=== PATIENT | male | born 2000 | race Caucasian/White ===

== ENCOUNTER 2021-10-09 17:10 | Inpatient (IN) | payer MEDICAID, OTHER ==
[2021-10-09] MEDS ORDERED: LORazepam 2 MG/ML INJ IM PRN (17:47)
[2021-10-09] MEDS ORDERED: HALOPERIDOL LACTATE 5 MG/ML 1 ML VIAL IM PRN (17:50)
[2021-10-09] MEDS ORDERED: MAGNESIUM HYDROXIDE 2,400 MG/10 ML CUP PO PRN (17:53)
[2021-10-09] MEDS ORDERED: MAG HYDROX/AL HYDROX/SIMETH 30 ML CUP PO PRN (17:53)
[2021-10-09] MEDS ORDERED: ACETAMINOPHEN TAB 325 MG TAB PO PRN (17:53)
[2021-10-09] MEDS: LORazepam 1 MG TAB PO PRN (18:05)
[2021-10-09] MEDS: haloperidoL 5 MG TAB PO PRN (18:05)
[2021-10-09] MEDS: NICOTINE 21MG/24HR PATCH TRANSDERM SCH (18:07)
[2021-10-09 18:19] VITALS: RESP 16
--- NOTE | 2021-10-10 02:17 | P.PN ---
Progress Note - Text Progress Note Date: 10/09/21 direct admit, bizarre behavior , inappropriate for evaluation at this time
[2021-10-10] MEDS: NICOTINE 21MG/24HR PATCH TRANSDERM SCH (09:06)
[2021-10-10] MEDS: LORazepam 1 MG TAB PO PRN (10:57)
[2021-10-10 11:37] LABS: Basophils # (A) 0.1 k/uL (0-0.2); Basophils % (A) 1 %; Eosinophils # (A) 0.2 k/uL (0-0.7); Eosinophils % (A) 3 %; HCT 48.2 % (39.0-53.0); HGB 16.1 gm/dL (13.0-17.5); Lymphocytes # (A) 2.4 k/uL (1.0-4.8); Lymphocytes % (A) 33 %; MCH 30.6 pg (25.0-35.0); MCHC 33.3 g/dL (31.0-37.0); MCV 91.9 fL (80.0-100.0); Mean Platelet Volume 6.8; Monocytes # (A) 0.5 k/uL (0-1.0); Monocytes % (A) 6 %; Neutrophils % (A) 55 %; Platelet Count 244 k/uL (150-450); RBC 5.25 m/uL (4.30-5.90); RDW 13.7 % (11.5-15.5); WBC 7.3 k/uL (3.8-10.6)
[2021-10-10 11:57] LABS: ALT 14 U/L (4-49); AST 27 U/L (17-59); African American GFR (CKD) >90 (>60 ml/min/1.73 sqM); Albumin 4.6 g/dL (3.5-5.0); Alkaline Phosphatase 49 U/L (38-126); Anion Gap 8 mmol/L; Blood Urea Nitrogen 16 mg/dL (9-20); Calcium 9.6 mg/dL (8.4-10.2); Carbon Dioxide 26 mmol/L (22-30); Chloride 104 mmol/L (98-107); Glucose 86 mg/dL (74-99); Non-African American GFR(CKD) >90 (>60 ml/min/1.73 sqM); Potassium 4.3 mmol/L (3.5-5.1); Sodium 138 mmol/L (137-145); Total Bilirubin 0.8 mg/dL (0.2-1.3); Total Protein 7.1 g/dL (6.3-8.2)
--- NOTE | 2021-10-10 16:19 | P.HPMEDMHU ---
History of Present Illness H&P Date: 10/10/21 History of Presenting Illness: Patient is a 21-year-old male with a past medical history of schizophrenia, PTSD, nicotine dependence, and methamphetamine use. Patient is currently admitted to inpatient psychiatric unit under psychiatry team secondary to psychosis. We have been consulted for medical evaluation and management throughout patient's hospitalization. Patient was seen and fully evaluated on psychiatric unit. He reports he is currently hospitalized because he had a panic attack causing him to shave his head because he was hearing voices and the voices told him to do so. Patient reports he is still hearing voices denies having any visual or tactile hallucinations. Patient also denies having any suicidal or homicidal ideations. He reports that he smokes one pack of cigarettes daily and uses methamphetamines. He denies having any other medical history and denies having any previous surgical procedures. Patient currently denies having any complaints including headache, lightheadedness, dizziness, chest pain, palpitations, shortness of breath, abdominal pain, nausea or vomiting. Labs completed with CBC, CMP, and TSH all unremarkable. Vital signs stable with heart rate 87, respiratory rate 16, BP 108/57, temp 97.7F and SpO2 of 98% on room air.. Review of systems: Pertinent positives and negatives as discussed in HPI, a complete review of sy stems was performed and all other systems are negative. Physical exam: Vital signs reviewed and stable. General: Nontoxic, no distress and appears stated age. Derm: Skin warm and dry, normal coloration for ethnicity. Head: Atraumatic, normocephalic and symmetric. Eyes: EOMs intact, no lid lag, and anicteric sclera Mouth: no lip lesions, mucus membranes moist Cardiovascular: regular rate and rhythm with normal S1S2, no murmur, positive posterior tibial pulses bilaterally, and cap refill < 2 seconds. Lungs: Respirations even, regular, and unlabored on room air. Lungs CTA bilaterally, no rhonchi, no rales, no wheezing, and no accessory muscle usage. Abdominal: soft, nontender to palpation, no guarding, no appreciable organomegaly Ext: ROM intact. No gross muscle atrophy, no edema, no contractures Neuro: Speech clear, face symmetrical and CN II-XII grossly intact with no noted focal neuro deficits Psych: Alert and oriented to person, place, time, and situation. Cooperative and pleasant, patient seemed to avoid eye contact throughout conversation/assessment Assessment and Plan of Care: Acute psychosis with auditory hallucinations Schizophrenia PTSD -Management per primary admitting psychiatric team including medications and therapeutic treatments. -Provide safe and supportive care. Methamphetamine use/abuse -Encourage and educate patient on the importance of drug cessation and the risks associated with continued use. Nicotine dependence -Encourage smoking cessation. -Nicotine patch Thank you for allowing us to participate in the care of this pleasant patient. Do not hesitate to contact us with questions. Someone can be reached from the [facility] hospitalist group all hours of the day at [phone] or via [employer]. Medications and Allergies Allergies Allergy/AdvReac Type Severity Reaction Status Date / Time No Known Allergies Allergy Verified 10/09/21 17:47 Physical Exam Vitals: Vital Signs Temp Pulse Resp BP Pulse Ox 10/09/21 18:13 97.7 F 87 16 108/57 98 Cranial Nerve Examination - Cranial Nerves Cranial Nerve II- Optic: Intact Cranial Nerve III- Oculomotor: Intact Cranial Nerve IV- Trochlear: Intact Cranial Nerve V- Trigeminal: Intact Cranial Nerve - Abducens: Intact Cranial Nerve VII- Facial: Intact Cranial Nerve VIII- Auditory: Intact Cranial Nerve IX- Glossopharyngeal: Intact Cranial Nerve X- Vagus: Intact Cranial Nerve XI- Accessory: Intact Cranial Nerve XII- Hypoglossal: Intact Results CBC & Chem 7: 10/10/21 10:51 10/10/21 10:51
--- NOTE | 2021-10-10 16:43 | P.HP ---
Psychiatric H&P - . H&P Date: 10/10/21 History & Physical: Allergies Allergy/AdvReac Type Severity Reaction Status Date / Time No Known Allergies Allergy Verified 10/09/21 17:47 Vital Signs Temp 97.7 F 10/09/21 18:13 Pulse 87 10/09/21 18:13 Resp 16 10/09/21 18:13 BP 108/57 10/09/21 18:13 Pulse Ox 98 10/09/21 18:13 Intake & Output 10/09/21 10/10/21 10/10/21 18:59 06:59 18:59 Weight 55.8 kg Laboratory Last Values WBC 7.3 k/uL (3.8-10.6) 10/10/21 10:51 RBC 5.25 m/uL (4.30-5.90) 10/10/21 10:51 Hgb 16.1 gm/dL (13.0-17.5) 10/10/21 10:51 Hct 48.2 % (39.0-53.0) 10/10/21 10:51 MCV 91.9 fL (80.0-100.0) 10/10/21 10:51 MCH 30.6 pg (25.0-35.0) 10/10/21 10:51 MCHC 33.3 g/dL (31.0-37.0) 10/10/21 10:51 RDW 13.7 % (11.5-15.5) 10/10/21 10:51 Plt Count 244 k/uL (150-450) 10/10/21 10:51 MPV 6.8 10/10/21 10:51 Neutrophils % 55 % 10/10/21 10:51 Lymphocytes % 33 % 10/10/21 10:51 Monocytes % 6 % 10/10/21 10:51 Eosinophils % 3 % 10/10/21 10:51 Basophils % 1 % 10/10/21 10:51 Neutrophils # 4.0 k/uL (1.3-7.7) 10/10/21 10:51 Lymphocytes # 2.4 k/uL (1.0-4.8) 10/10/21 10:51 Monocytes # 0.5 k/uL (0-1.0) 10/10/21 10:51 Eosinophils # 0.2 k/uL (0-0.7) 10/10/21 10:51 Basophils # 0.1 k/uL (0-0.2) 10/10/21 10:51 Sodium 138 mmol/L (137-145) 10/10/21 10:51 Potassium 4.3 mmol/L (3.5-5.1) 10/10/21 10:51 Chloride 104 mmol/L (98-107) 10/10/21 10:51 Carbon Dioxide 26 mmol/L (22-30) 10/10/21 10:51 Anion Gap 8 mmol/L 10/10/21 10:51 BUN 16 mg/dL (9-20) 10/10/21 10:51 Creatinine 1.00 mg/dL (0.66-1.25) 10/10/21 10:51 Est GFR (CKD-EPI)AfAm >90 (>60 ml/min/1.73 sqM) 10/10/21 10:51 Est GFR (CKD-EPI)NonAf >90 (>60 ml/min/1.73 sqM) 10/10/21 10:51 Glucose 86 mg/dL (74-99) 10/10/21 10:[address] Glu mg/dL 105 10/10/21 10:51 Hemoglobin A1c 5.3 % (0.0-6.0) 10/10/21 10:51 Calcium 9.6 mg/dL (8.4-10.2) 10/10/21 10:51 Total Bilirubin 0.8 mg/dL (0.2-1.3) 10/10/21 10:51 AST 27 U/L (17-59) 10/10/21 10:51 ALT 14 U/L (4-49) 10/10/21 10:51 Alkaline Phosphatase 49 U/L (38-126) 10/10/21 10:51 Total Protein 7.1 g/dL (6.3-8.2) 10/10/21 10:51 Albumin 4.6 g/dL (3.5-5.0) 10/10/21 10:51 TSH 0.503 mIU/L (0.465-4.680) 10/10/21 10:51 10/10/21 16:29 Psychiatric evaluation: History of present illness: This is a secondary assessment on Chai Ford who is a 21-year-old male with long history of mental illness Patient has been diagnosed with schizophrenia, PTSD and methamphetamine use disorder Patient also smokes a pack of cigarettes daily Patient hasn't multiple psychiatric hospitalizations in the past Patient was currently hospitalized after he states that he had used methamphetamine about 3 days ago Patient stated that he was having command hallucinations which told him to shave his head He states that he also suffers from PTSD where he [place] He says that he has chronic anxiety and that he wants Xanax instead of Klonopin that he has been taking Patient states that he also is on Abilify but does not know the dose and that he gets a shot of monthly Abilify Aristada of unknown dosage Patient is not sure when he had this last dosage or the shot She also does not know if he has been taking his medications regularly are not Past history personal social history: Patient remains a vague historian Patient reports that he has been diagnosed with schizophrenia and PTSD for many years Patient reports that he takes Klonopin and wants to get back on Xanax although he does not know the dosage Patient also admits using methamphetamine but continues to minimize He says that he still hears voices on and off but for the most part is able to ignore them until he uses the methamphetamine He says that he currently lives independently and that his family helps him with the finances and that he is in the process of applying for disability He states that he goes to a local mental hold clinic for follow-up Mental status examination: Reveals a young male who currently appears in no acute physical distress Patient shows some mild psychomotor retardation and seems to be somewhat slow in his responses and moment Patient does not show any EPS or any tremors Thought processes are goal-directed sequential and logical Patient however remains very drug seeking especially for benzodiazepines Patient's formal and operational judgment remains impaired with being focused on drug-seeking Motivation for treatment is poor Problem-solving skills are impaired Judgment is poor Cognitively patient appears to be somewhat obtunded Diagnostic impression: Psychotic disorder stimulant related Schizophrenia by history PTSD by history Methamphetamine use disorder unspecified Rule out benzodiazepine use disorder Nicotine dependence Plan: The patient will be hospitalized on the unit for further evaluation and treatment Therapy will be focused on writing supportive care improving his coping abilities with a multi about treatment Patient will also participate in on the [facility] activities individual milieu group OT RT PT and pharmacotherapy We will also start the patient on Zyprexa 7.5 mg to start within titrated to response Monitor for EPS tremors tardive dyskinesia akathisia QTC prolongation etc Discussed effects and side effects of medication Patient did not provide clear information on his last shot of Aristada although it appears the to be not adequate to control his symptoms since patient reports of auditory hallucinations in spite of his medications and further worsened by his substance use Approximately the stay would be 5-7 days Sin Davis M.D.
[2021-10-10] MEDS: haloperidoL 5 MG TAB PO PRN (17:20)
[2021-10-10 19:18] LABS: Chol/HDL Ratio 2.61 Ratio; LDL Cholesterol,Calculated 63.9 mg/dL (0.0-131.0)
[2021-10-10] MEDS: OLANZapine 7.5 MG TAB PO SCH (19:55)
[2021-10-10] MEDS: GABAPENTIN 300 MG CAP PO SCH (21:11)
[2021-10-10] MEDS: traZODone HCL 100 MG TAB PO PRN (21:14)
[2021-10-11] MEDS: NICOTINE 21MG/24HR PATCH TRANSDERM SCH (09:14)
[2021-10-11] MEDS: GABAPENTIN 300 MG CAP PO SCH ×3 (09:14→20:32)
--- NOTE | 2021-10-11 11:48 | P.PN ---
Subjective Progress Note Date: 10/11/21 Principal diagnosis: Diagnostic impression: Psychotic disorder stimulant related Schizophrenia by history PTSD by history Methamphetamine use disorder unspecified Rule out benzodiazepine use disorder Nicotine dependence Subjective data: I feel little bit better the voices are gone now I feel much more relaxed I'm not having any bizarre thoughts to do anything to myself or others Objective data: Patient at this time seems to be much more easily redirectable No agitation or aggression noted Affect at this time remains flat Thinking remains very concrete Patient seems to otherwise interact fairly well Plan: If patient continues to show excessive sedation will decrease the dosage of gabapentin We'll discontinue Ativan when necessary due to patient's tendency to seek benzos Continue with on the [facility] activities and milieu treatment Sin Davis M.D. 10/11/2021 Objective - Vital Signs Vital signs: Vital Signs Temp 97.7 F 10/09/21 18:13 Pulse 87 10/09/21 18:13 Resp 16 10/09/21 18:13 BP 108/57 10/09/21 18:13 Pulse Ox 98 10/09/21 18:13 - Labs CBC & Chem 7: 10/10/21 10:51 10/10/21 10:51
[2021-10-11] MEDS: haloperidoL 5 MG TAB PO PRN (13:15)
[2021-10-11] MEDS: traZODone HCL 100 MG TAB PO PRN (20:32)
[2021-10-11] MEDS: OLANZapine 7.5 MG TAB PO SCH (20:32)
[2021-10-12] MEDS: GABAPENTIN 300 MG CAP PO SCH ×3 (08:17→20:18)
[2021-10-12] MEDS: NICOTINE 21MG/24HR PATCH TRANSDERM SCH (08:17)
--- NOTE | 2021-10-12 08:37 | P.PN ---
Subjective Progress Note Date: 10/12/21 Principal diagnosis: Diagnostic impression: Psychotic disorder stimulant related Schizophrenia by history PTSD by history Methamphetamine use disorder unspecified Rule out benzodiazepine use disorder Nicotine dependence Subjective data: The patient was seen for a follow-up today Patient reports that he is not experiencing any side effects from his current medications Patient denies any sedation or any dizziness Patient denies any feels overmedicated He denies that he is experiencing any auditory or visual hallucinations Objective data: Patient at this time seems to be much more easily redirectable No agitation or aggression noted thought processes seemed to be goal-directed sequential and logical Affect at this time remains flat Thinking remains very concrete Patient seems to otherwise interact fairly well Plan: Patient continues to make improvement Patient has not shown any drug-seeking behavior and has not requested for any benzos No agitation or aggression noted This patient in the milieu treatment however remains limited Continue encouraging appropriate interaction and participation in on the [facility] activities Support given Sin Davis M.D. 10/12/2021 Objective - Vital Signs Vital signs: Vital Signs Temp 97.7 F 10/09/21 18:13 Pulse 87 10/09/21 18:13 Resp 16 10/09/21 18:13 BP 108/57 10/09/21 18:13 Pulse Ox 98 10/09/21 18:13 - Labs CBC & Chem 7: 10/10/21 10:51 10/10/21 10:51
[2021-10-12] MEDS: traZODone HCL 100 MG TAB PO PRN (20:18)
[2021-10-12] MEDS: OLANZapine 7.5 MG TAB PO SCH (20:18)
[2021-10-12] MEDS ORDERED: MELATONIN 5 MG TABLET PO PRN (23:01)
[2021-10-12] MEDS ORDERED: diphenhydrAMINE 25 MG CAP PO STA (23:03)
[2021-10-13 06:58] VITALS: BP 109/66; PULSE 88; TEMP 97.3
[2021-10-13] MEDS: NICOTINE 21MG/24HR PATCH TRANSDERM SCH (08:27)
[2021-10-13] MEDS: GABAPENTIN 300 MG CAP PO SCH (08:27)
--- NOTE | 2021-10-13 10:02 | P.DS ---
Providers Date of admission: 10/09/21 17:10 Expected date of discharge: 10/13/21 Attending physician: Bernardo Waite MD Consults: 10/09/21 17:53 Consult Physician Routine Consulting Provider: Dalia Hill Consult Reason/Comments: Medical consultation Do you want consulting provider notified?: Already Contacted Primary care physician: Bernardo Espinoza - Discharge Diagnosis(es) (1) Schizoaffective disorder, depressive type Current Visit: Yes Status: Acute Priority: High (2) PTSD (post-traumatic stress disorder) Current Visit: Yes Status: Acute Priority: Medium (3) Methamphetamine use Current Visit: Yes Status: Acute Priority: Medium (4) Nicotine dependence Current Visit: Yes Status: Acute Priority: Low Hospital Course: Admission HPI: Admission note was completed by Dr Davis "This is a secondary assessment on Chai Ford who is a 21-year-old male with long history of mental illness. Patient has been diagnosed with schizophrenia, PTSD and methamphetamine use dis order. Patient also smokes a pack of cigarettes daily. Patient hasn't multiple psychiatric hospitalizations in the past. Patient was currently hospitalized after he states that he had used methamphetamine about 3 days ago. Patient stated that he was having command hallucinations which told him to shave his head. He states that he also suffers from PTSD where he saw a person get [place]. He says that he has chronic anxiety and that he wants Xanax instead of Klonopin that he has been taking. Patient states that he also is on Abilify but does not know the dose and that he gets a shot of monthly Abilify Aristada of unknown dosage. Patient is not sure when he had this last dosage or the shot. She also does not know if he has been taking his medications regularly are not." Hospital course: Upon admission to the unit patient was directable and agreeable to commence treatment and signed adult voluntary form. Patient ended up signing AMA on 10/11. Patient got along well with other patients on the unit and followed unit protocol. Patient was compliant with the medications and denied any side effects throughout hospital course. Patient was started on Zyprexa 7.5 mg daily at bedtime for mood stabilization/psychosis. Patient spoke of his stressors and engaged in therapy both group and individual. Patient was also seen by medical team for history and physical exam. Throughout the course of the hospitalization patient gradually improved with regards to mood, anxiety, psychosis, sleep and returned back to their baseline level of functioning. On the day of discharge patient denied any suicidal or homicidal ideations intent or plan denied any auditory or visual hallucinations. Patient endorsed wanting to live for his health and his future. The patient denied any access to guns or weapons. Patient denied any paranoia and did not endorse any delusions. Patient does have a significant history of substance abuse and was counseled on abstaining from all substances including alcohol and marijuana. Patient was offered however declined inpatient substance-abuse rehab. Patient was also counseled on the medications and need for regular compliance and was encouraged to follow-up with their outpatient appointment for mental health and also for primary care. Prior to discharge, social work program coordinator to arrange for discharge back to long term. Patient is also currently being followed by Dr. Yu at [facility] in [place] and also ACT team Mental status exam: General Appearance: Patient appears to be short in stature, shaved head, stated age is alert, pleasant, and cooperative. Patient is in no acute distress and has improved hygiene and grooming Behavior: Patient is calmly seated without any agitated behavior. Speech: Patient's speech is fluent and nonpressured. [place] Mood/Affect: Patient reports their mood is "good", affect is congruent and euthymic. Suicidality/Homicidality: Patient denies having any suicidal or homicidal ideation intent or plan. Perceptions: Patient denies any auditory or visual hallucinations. Though content/process: There is no evidence of any delusional thought content and thought process is linear and goal-directed. Memory and concentration: AOX3, grossly intact for the purposes of this session. Can spell "WORLD" backwards correctly. Judgment and insight: chronically poor, however has improved with guarded progn osis Impression: Schizoaffective disorder depressive type PTSD Methamphetamine use disorder Nicotine dependence Plan: -Continue with discharge today as patient has improved and stabilized psychiatri jose francisco and is not currently an imminent threat to himself and/or others. Patient will remain at chronically elevated risk for harm to self and/or others due to his impulsivity and substance abuse. -Continue medications: Zyprexa 7.5 mg daily at bedtime for mood stabilization/psychosis. Trazodone 100 mg daily at bedtime when necessary for insomnia. -Patient was counseled on the need for medication compliance and appropriate follow-up at mental health and also primary care for medical issues. Patient verbalized understanding and agreed. -Social work to help arrange patient is discharged today back to long term and she will be followed by [facility] and act team in [place]. Social work also to arrange for patients follow up appointments with [facility] for psychiatric care along with follow up with primary care provider. -Patient counseled on abstaining from recreational drugs and marijuana and alcohol. Was informed/educated on the adverse effects on their physical and mental health. Patient verbally agreed and understood. -Patient was instructed to return to the hospital or seek immediate medical care if their psychiatric or medical symptoms do worsen or reoccur. Allergies Allergy/AdvReac Type Severity Reaction Status Date / Time No Known Allergies Allergy Verified 10/09/21 17:47 Laboratory Results WBC 7.3 k/uL (3.8-10.6) 10/10/21 10:51 RBC 5.25 m/uL (4.30-5.90) 10/10/21 10:51 Hgb 16.1 gm/dL (13.0-17.5) 10/10/21 10:51 Hct 48.2 % (39.0-53.0) 10/10/21 10:51 MCV 91.9 fL (80.0-100.0) 10/10/21 10:51 MCH 30.6 pg (25.0-35.0) 10/10/21 10:51 MCHC 33.3 g/dL (31.0-37.0) 10/10/21 10:51 RDW 13.7 % (11.5-15.5) 10/10/21 10:51 Plt Count 244 k/uL (150-450) 10/10/21 10:51 MPV 6.8 10/10/21 10:51 Neutrophils % 55 % 10/10/21 10:51 Lymphocytes % 33 % 10/10/21 10:51 Monocytes % 6 % 10/10/21 10:51 Eosinophils % 3 % 10/10/21 10:51 Basophils % 1 % 10/10/21 10:51 Neutrophils # 4.0 k/uL (1.3-7.7) 10/10/21 10:51 Lymphocytes # 2.4 k/uL (1.0-4.8) 10/10/21 10:51 Monocytes # 0.5 k/uL (0-1.0) 10/10/21 10:51 Eosinophils # 0.2 k/uL (0-0.7) 10/10/21 10:51 Basophils # 0.1 k/uL (0-0.2) 10/10/21 10:51 Sodium 138 mmol/L (137-145) 10/10/21 10:51 Potassium 4.3 mmol/L (3.5-5.1) 10/10/21 10:51 Chloride 104 mmol/L (98-107) 10/10/21 10:51 Carbon Dioxide 26 mmol/L (22-30) 10/10/21 10:51 Anion Gap 8 mmol/L 10/10/21 10:51 BUN 16 mg/dL (9-20) 10/10/21 10:51 Creatinine 1.00 mg/dL (0.66-1.25) 10/10/21 10:51 Est GFR (CKD-EPI)AfAm >90 (>60 ml/min/1.73 sqM) 10/10/21 10:51 Est GFR (CKD-EPI)NonAf >90 (>60 ml/min/1.73 sqM) 10/10/21 10:51 Glucose 86 mg/dL (74-99) 10/10/21 10:[address] Glu mg/dL 105 10/10/21 10:51 Hemoglobin A1c 5.3 % (0.0-6.0) 10/10/21 10:51 Calcium 9.6 mg/dL (8.4-10.2) 10/10/21 10:51 Total Bilirubin 0.8 mg/dL (0.2-1.3) 10/10/21 10:51 AST 27 U/L (17-59) 10/10/21 10:51 ALT 14 U/L (4-49) 10/10/21 10:51 Alkaline Phosphatase 49 U/L (38-126) 10/10/21 10:51 Total Protein 7.1 g/dL (6.3-8.2) 10/10/21 10:51 Albumin 4.6 g/dL (3.5-5.0) 10/10/21 10:51 Triglycerides 100.00 mg/dL (0.00-149.00) 10/10/21 10:51 Cholesterol 136.00 mg/dL (0.00-200.00) 10/10/21 10:51 LDL Cholesterol, Calc 63.9 mg/dL (0.0-131.0) 10/10/21 10:51 VLDL Cholesterol, Calc 20.00 mg/dL (5.00-40.00) 10/10/21 10:51 HDL Cholesterol 52.10 mg/dL (40.00-60.00) 10/10/21 10:51 Cholesterol/HDL Ratio 2.61 Ratio 10/10/21 10:51 TSH 0.503 mIU/L (0.465-4.680) 10/10/21 10:51 Vital Signs Temp 97.3 F L 10/13/21 03:35 Pulse 88 10/13/21 03:35 Resp 16 10/13/21 03:35 BP 109/66 10/13/21 03:35 Pulse Ox 97 10/13/21 03:35 Intake & Output 10/12/21 10/13/21 10/13/21 18:59 06:59 18:59 Weight 58.6 kg Patient Condition at Discharge: Stable Plan - Discharge Summary New Discharge Prescriptions: New traZODone HCL [Desyrel] 100 mg PO HS PRN 30 Days tab PRN Reason: Insomnia Nicotine 21Mg/24Hr Patch [Habitrol] 1 patch TRANSDERM DAILY 14 Days patch Gabapentin [Neurontin] 300 mg PO TID 3 Days cap OLANZapine [ZyPREXA] 7.5 mg PO DAILY@2130 30 Days tab Discharge Medication List Gabapentin [Neurontin] 300 mg PO TID 3 Days cap 10/13/21 [Rx] Nicotine 21Mg/24Hr Patch [Habitrol] 1 patch TRANSDERM DAILY 14 Days patch 10/13/21 [Rx] OLANZapine [ZyPREXA] 7.5 mg PO DAILY@2130 30 Days tab 10/13/21 [Rx] traZODone HCL [Desyrel] 100 mg PO HS PRN 30 Days tab 10/13/21 [Rx] Activity/Diet/Wound Care/Special Instructions: Activity and diet as tolerated. Avoid the use of street drugs and alcohol. Take all medications as prescribed. When you are in need of refills on your medications please contact your medical provider and/or outpatient psychiatrist to have this done. Please go to scheduled outpatient appointment for aftercare treatment. If symptoms return or become worse, call the crisis line at and/or go to the nearest emergency room for evaluation Discharge Disposition: OTHER INSTITUTION NOT DEFINED
== END 2021-10-13 13:42 | disposition other institution (70) | DRG 885 ==
LOC: 3MHU 17:10
PROVIDERS: ADMIT Psychiatry & Neurology Psychiatry; ATTEND Psychiatry & Neurology Psychiatry
DX: F25.1 Schizoaffective disorder, depressive type (principal); R45.851 Suicidal ideations; F17.210 Nicotine dependence, cigarettes, uncomplicated; F15.188 Other stimulant abuse with other stimulant-induced disorder; F43.10 Post-traumatic stress disorder, unspecified; F82 Specific developmental disorder of motor function; G47.00 Insomnia, unspecified; Z59.01 Sheltered homelessness; Z79.899 Other long term (current) drug therapy; Z71.41 Alcohol abuse counseling and surveillance of alcoholic; Z71.6 Tobacco abuse counseling; Z71.51 Drug abuse counseling and surveillance of drug abuser
CPT/HCPCS: 80053; 80061; 83036; 84443; 85025